=== PATIENT | female | born 1970 | race Caucasian/White ===

== ENCOUNTER 2016-09-09 07:43 | Emergency (ER) | payer OTHER ==
[~2016-09-09] VITALS: Ht 152.4 cm; Wt 61.2 kg
[2016-09-09 07:47] VITALS: BP 113/75
--- NOTE | 2016-09-09 07:58 | ED AMS/SEIZURE/WEAK/DIZZY ---
History of Present Illness General Chief Complaint: General Adult Stated Complaint: VERTIGO PER PT Source: patient, family, old records Exam Limitations: no limitations Vital Signs & Intake/Output Vital Signs & Intake/Output Vital Signs Date Time Temp Pulse Resp B/P B/P Pulse O2 O2 Flow FiO2 Mean Ox Delivery Rate 09/09 0747 98.9 78 20 113/75 99 Room Air Allergies Coded Allergies: No Known Drug Allergies (Intermediate, NONE 09/09/16) Reconcile Medications Ondansetron (Zofran Odt) 4 MG TAB.RAPDIS 1 TAB SL TID PRN NAUSEA Scopolamine Hydrobromide (Transderm-Scop) 1.5MG/3DAY PATCH.TD.3 1 PAT TOP Q3D PRN VERTIGO apply to the hairless area behind 1 ear at least 4 hours before effect is required; reapply every 3 days as needed Triage Note: C/O DIZZINESS WITH VOMITING SINCE THIS AM, HAS HX OF VERITGO. STATES SHE TOOK 2 MECLEZINE (12.5 MG) AND VOMITED THEM UP. Triage Nurses Notes Reviewed? yes Onset: Abrupt Duration: hour(s): (2), constant Timing: recent history Injury Environment: home Severity: moderate Severity Numbers: 7 Modifying Factors: Worsens With: movement (head). Associated Symptoms: denies HPI: 45-year-old female with history of vertigo presents to ER for evaluation after expressing sudden onset of room spinning dizziness associated nausea and vomiting since this morning. She has a history of vertigo and states this feels similar. No recent head trauma or fall no headache or vision changes. She denies any chest pain palpitations abdominal pain. She attempted taking meclizine tablets however vomited them up symptoms are worse with head movement no other modifying factors or associated symptoms otherwise. no fever, no chills (EBONIE HUMMEL) Past History Travel History Traveled to [place] past 21 day No Medical History Any Pertinent Medical History? see below for history Neurological: vertigo Cardiovascular: NONE Respiratory: asthma Gastrointestinal: NONE Renal: NONE Musculoskeletal: NONE Psychiatric: NONE Endocrine: NONE Blood Disorders: NONE Cancer(s): NONE Surgical History Surgical History: non-contributory Psychosocial History What is your primary language Turkmen Tobacco Use: Never used Family History Hx Contributory? No (EBONIE HUMMEL) Review of Systems Review of Systems Constitutional: Reports: see HPI. All Other Systems: Reviewed and Negative Comments Review of systems: See HPI, All other systems negative. Constitutional, no chills no fever, no malaise HEENT: No visual changes no sore throat no congestion, Cardiovascular: No chest pain , no palpitation Skin: no rashes, no change in skin Respiratory: No dyspnea no cough no sputum GI: No nausea no vomiting, no diarrhea, : No dysuria Muscle skeletal: No joint pain, no back pain, no neck pain, Neurologic: No numbness no headache Psych: No stress Heme/endocrine: No bruising no bleeding Immunology: No lymphadenopathy (EBONIE HUMMEL) Physical Exam Physical Exam General Appearance: well developed/nourished, alert, awake Comments: Well-developed well-nourished person in no acute distress HEENT: Normal EENT exam; PERRL, EOMI, no nystagmus. HEAD is atraumatic. moist mucous membranes. Neck: Supple, normal range of motion Back: Nontender, no CVA tenderness. Full range of motion Cardiovascular: Regular rate and rhythms no murmurs rubs Respiratory: No respiratory distress. Patient speaking in full complete sentences. Breath sounds clear to auscultation bilaterally: NO W/R/R Abdomen: Soft, nontender nondistended, no appreciable organomegaly. Normal bowel sounds. No rebound/guarding, Extremity: No edema, full range of motion of extremities Neuro: Alert oriented x3, motor sensory normal,There were no obvious focal neurologic abnormalities. Skin: No appreciable rash on exposed skin, skin is warm and dry. Psych: Mood and affect is normal, memory and judgment is normal. Core Measures ACS in differential dx? No CVA/TIA Diagnosis: No Severe Sepsis Present: No Septic Shock Present: No (EBONIE HUMMEL) Progress Differential Diagnosis: arrythmia, anemia, dehydration, drug intoxication, electrolyte imbalance, hypoglycemia, labrynthitis, post-traumatic vertigo, vertebrobasilar insuff, vertigo Plan of Care: Orders Procedure Date/time Status CBC WITHOUT DIFFERENTIAL 09/09 08 Complete BASIC METABOLIC PANEL 09/09 0801 Complete Current Medications Sig/Abhishek Start time Last Medication Dose Stop Time Status Admin Ondansetron HCl 4 MG ONCE ONE 09/09 0815 CAN (Zofran) 09/09 0816 Laboratory Tests 09/09/16 0819: Anion Gap 9, Estimated GFR > 60, BUN/Creatinine Ratio 20.0, Glucose 93, Calcium 9.3, CBC w Diff NO MAN DIFF REQ, RBC 4.33, MCV 91.4, MCH 31.3 H, RDW 13.0, MPV 8.1, Gran % 72.1, Lymphocytes % 21.8, Monocytes % 3.8, Eosinophils % 1.6, Basophils % 0.7, Absolute Granulocytes 4.3, Absolute Lymphocytes 1.3, Absolute Monocytes 0.2, Absolute Eosinophils 0.1, Absolute Basophils 0, PUBS MCHC 34.2 Labs ordered old records reviewed patient medicated by 2 mg IV Phenergan 25 IV IV fluids 910 and repeat evaluation patient sleeping when awoken she states she is feeling much improved. She and her resting much longer to be here they feel comfortable going home prescription for scopolamine patch and Zofran provided I discussed with him plan of care I discussed with the patient at length all of their results. I had an extensive conversation regarding need for close follow up with their primary care physician this week as well as return precautions. I answered all of their questions, they feel comfortable with the plan and follow-up care. Patient ambulatory around the emergency room she feels much improved and she feels comfortable with discharge at this time I discussed with the patient/family the medications that they will receive. I gave them signs and symptoms that could indicate an adverse reaction. I have advised them to limit their activities until they can see how they respond to the medication. (EBONIE HUMMEL) Initial ED EKG: none (EBONIE HUMMEL) Departure Departure Disposition: HOME OR SELF CARE Condition: Stable Clinical Impression Primary Impression: Vertigo Referrals: DIMAS OVERTON MD Additional Instructions: SCOPALMINE PATCH DISCUSSED. ZOFRAN IF NEEDED FOR NAUSEA. FOLLOW UP WITH YOUR PMD, RETURN WITH ANY CONCERNS Departure Forms: Customer Survey General Discharge Information Prescriptions: Current Visit Scripts Scopolamine Hydrobromide (Transderm-Scop) 1 PAT TOP Q3D PRN VERTIGO #3 PAT apply to the hairless area behind 1 ear at least 4 hours before effect is required; reapply every 3 days as needed Ondansetron (Zofran Odt) 1 TAB SL TID PRN NAUSEA #10 TAB (EBONIE HUMMEL) PA/HEMMING AND TACKING MACHINE OPERATOR Co-Sign Statement Statement: ED Attending supervision documentation- I saw and evaluated the patient. I have also reviewed all the pertinent lab results and diagnostic results. I agree with the findings and the plan of care as documented in the PA's/HEMMING AND TACKING MACHINE OPERATOR's documentation. x I have reviewed the ED Record and agree with the PA's/HEMMING AND TACKING MACHINE OPERATOR's documentation. [] Additions or exceptions (if any) to the PAs/HEMMING AND TACKING MACHINE OPERATOR's note and plan are summarized below: [] (LEW IBARRA,BEATA)
[2016-09-09 08:41] LABS: ABSOLUTE BASOPHIL COUNT 0 /CUMM (0.0-0.2); ABSOLUTE EOSINOPHIL COUNT 0.1 /CUMM (0.0-0.7); ABSOLUTE GRANULOCYTE CT 4.3 /CUMM (1.4-6.5); ABSOLUTE LYMPH COUNT 1.3 /CUMM (1.2-3.4); ABSOLUTE MONOCYTE COUNT 0.2 /CUMM (0.10-0.60); BASOPHIL % 0.7 % (0.0-2.0); EOSINOPHIL % 1.6 % (0-5); GRANULOCYTE % 72.1 % (42.2-75.2); HEMATOCRIT 39.6 % (37-47); MEAN CORPUSCULAR HGB 31.3 PG (27.0-31.0); MEAN CORPUSCULAR HGB CONC 34.2 G/DL (33.0-37.0); MEAN CORPUSCULAR VOLUME 91.4 FL (81.0-99.0); MEAN PLATELET VOLUME 8.1 FL (7.4-10.4); PLATELET COUNT 259 /CUMM (130-400); RED BLOOD CELL CT 4.33 /CUMM (4.20-5.40); WHITE BLOOD CELL COUNT 5.9 /CUMM (4.8-10.8)
[2016-09-09] MEDS ORDERED: TRANSDERM-SCOP1 EACH TOP (09:03)
[2016-09-09] MEDS ORDERED: ZOFRAN ODT4 M1 SL (09:03)
== END 2016-09-09 09:33 ==
LOC: ERH 07:43
PROVIDERS: Physician Assistant Medical
DX: R42 Dizziness and giddiness (principal)
CPT/HCPCS: 96361; 96374; 96375; J2550; J3360